=== PATIENT | female | born 1945 | race Caucasian/White ===

== ENCOUNTER 2018-03-15 07:24 | Inpatient (IN) | payer MEDICARE ==
[~2018-03-15] VITALS: Ht 170.2 cm; Wt 67.0 kg
[2018-03-15] MEDS ORDERED: PLEASE ENTER HEIGHT AND WEIGHT MC SCH (08:00)
[2018-03-15] MEDS ORDERED: PLEASE ENTER ALLERGIES MC SCH (08:00)
[2018-03-15] MEDS ORDERED: LIDOCAINE-MPF 1%, 5ML ONE ×2 (08:10→14:07)
[2018-03-15 08:11] VITALS: BP 154/77
[2018-03-15] MEDS ORDERED: METO25TA35 PO (08:20)
[2018-03-15] MEDS ORDERED: CHLO25TA PO (08:20)
[2018-03-15] MEDS ORDERED: DULO30CA2 PO (08:20)
[2018-03-15] MEDS ORDERED: ESTR42.58 VG (08:20)
[2018-03-15] MEDS ORDERED: AMLO-150 PO (08:20)
[2018-03-15] MEDS ORDERED: CA C1TAB42 PO (08:20)
[2018-03-15] MEDS ORDERED: TRAZ50TA66 PO (08:20)
[2018-03-15] MEDS ORDERED: POTASSIUM GLUCONATE PO (08:20)
[2018-03-15] MEDS ORDERED: OMEP-110 PO (08:20)
[2018-03-15] MEDS ORDERED: CHOL500045 PO (08:20)
[2018-03-15] MEDS ORDERED: MIDAZOLAM 1 MG/ML, 5ML ONE (08:25)
[2018-03-15] MEDS ORDERED: FENTANYL PF 100 MCG/2ML ONE ×2 (08:25→15:23)
[2018-03-15] MEDS ORDERED: FLUMAZENIL 0.1 MG/1 ML, 5ML ONE (08:27)
[2018-03-15] MEDS ORDERED: NALOXONE 1 MG/ML, 2ML ONE (08:28)
[2018-03-15] MEDS: SODIUM CHLORIDE 0.9% 1,000 ML IV SCH ×2 (08:39→18:44)
[2018-03-15 08:51] LABS: PROTHROMBIN TIME 10.6 Seconds (9.6-11.5)
[2018-03-15] MEDS ORDERED: KETOROLAC 30 MG/1 ML ONE (11:21)
[2018-03-15] MEDS: KETOROLAC 30 MG/1 ML IVPush ONE ×2 (11:28→11:29)
[2018-03-15] MEDS ORDERED: ATROPINE SYRINGE 0.1 MG/ML, 10ML ONE (12:00)
[2018-03-15] MEDS ORDERED: PROMETHAZINE 12.5 MG SUPP PR ONE (12:30)
[2018-03-15] MEDS ORDERED: MEPERIDINE/PF 25MG/0.5ML IM ONE (12:30)
[2018-03-15] MEDS ORDERED: MEPERIDINE/PF 25MG/0.5ML ONE (12:32)
[2018-03-15] MEDS ORDERED: VISIPAQUE 320MG/ML, 50ML BOTTLE ONE (14:00)
[2018-03-15] MEDS ORDERED: VISIPAQUE 320 MG/ML, 150ML BOTTLE ONE (14:00)
[2018-03-15] MEDS ORDERED: OMNIPAQUE 350 MG/ML, 100ML BOTTLE ONE (14:41)
[2018-03-15 14:43] LABS: BASOPHILS # (AUTO) 0.01 x10^3/uL (0-0.1); BASOPHILS % (AUTO) 0 % (0-1); EOSINOPHILS # (AUTO) 0.02 x10^3/uL (0-0.4); EOSINOPHILS % (AUTO) 0 % (1-7); LYMPHOCYTES # (AUTO) 0.46 x10^3/uL (1-3.4); LYMPHOCYTES % (AUTO) 5 % (22-44); MD NO; MEAN CORPUSCULAR HEMOGLOBIN 33.6 pg (27.0-34.8); MEAN CORPUSCULAR HGB CONC 34.4 g/dL (32.4-35.8); MEAN CORPUSCULAR VOLUME 97.6 fL (80-100); MEAN PLATELET VOLUME 7.6 fL (7.4-10.4); MONOCYTES % (AUTO) 7 % (2-9); NEUTROPHILS # (AUTO) 7.83 x10^3/uL (1.8-6.8); NEUTROPHILS % (AUTO) 88 % (42-75); PLATELET COUNT 257 x10^3/uL (130-400); RED BLOOD COUNT 3.79 x10^6/uL (3.82-5.3); RED CELL DISTRIBUTION WIDTH 12.2 % (9.6-15.2)
[2018-03-15 14:55] LABS: ALANINE AMINOTRANSFERASE 94 U/L (12-78); ALBUMIN 2.8 g/dL (3.4-5.0); ANION GAP 6 mmol/L (5-15); CALCIUM 7.9 mg/dL (8.5-10.1); CHLORIDE 109 mmol/L (98-107); CREATININE 1.19 mg/dL (0.55-1.02)
[2018-03-15 14:57] LABS: ALKALINE PHOSPHATASE 54 U/L (45-117); BILIRUBIN,TOTAL 0.5 mg/dL (0.2-1.0)
[2018-03-15] MEDS ORDERED: ONDANSETRON 2MG/ML, 2ML ONE (15:28)
[2018-03-15] MEDS ORDERED: SODIUM CHLORIDE 0.9% 1,000 ML IV SCH (15:28)
[2018-03-15] MEDS ORDERED: POLYETHYLENE GLYCOL 17 GM PACKET PO PRN (15:30)
[2018-03-15] MEDS ORDERED: BISACODYL 10 MG SUPP PR PRN (15:30)
[2018-03-15] MEDS ORDERED: ONDANSETRON 2MG/ML, 2ML IVPush PRN (15:30)
[2018-03-15] MEDS ORDERED: morphine SULFATE 10 MG/ML, 1ML IVPush PRN (15:30)
[2018-03-15] MEDS: OXYcodone IR 5MG TABLET PO PRN ×2 (17:20→22:12)
[2018-03-15] MEDS ORDERED: SODIUM CHLORIDE 0.9%, 500ML IVBOLUS ONE (20:30)
[2018-03-16 04:00] VITALS: BP 136/70
[2018-03-16] MEDS: OXYcodone IR 5MG TABLET PO PRN ×3 (04:21→18:26)
[2018-03-16 04:56] LABS: BASOPHILS # (AUTO) 0.01 x10^3/uL (0-0.1); BASOPHILS % (AUTO) 0 % (0-1); EOSINOPHILS # (AUTO) 0.14 x10^3/uL (0-0.4); EOSINOPHILS % (AUTO) 1 % (1-7); LYMPHOCYTES # (AUTO) 0.41 x10^3/uL (1-3.4); LYMPHOCYTES % (AUTO) 4 % (22-44); MD NO; MEAN CORPUSCULAR HEMOGLOBIN 34.6 pg (27.0-34.8); MEAN CORPUSCULAR HGB CONC 35.5 g/dL (32.4-35.8); MEAN CORPUSCULAR VOLUME 97.4 fL (80-100); MEAN PLATELET VOLUME 7.7 fL (7.4-10.4); MONOCYTES # (AUTO) 0.59 x10^3/uL (0.2-0.8); MONOCYTES % (AUTO) 6 % (2-9); NEUTROPHILS # (AUTO) 9.08 x10^3/uL (1.8-6.8); NEUTROPHILS % (AUTO) 89 % (42-75); PLATELET COUNT 253 x10^3/uL (130-400); RED BLOOD COUNT 3.52 x10^6/uL (3.82-5.3); RED CELL DISTRIBUTION WIDTH 12.1 % (9.6-15.2)
[2018-03-16] MEDS: SODIUM CHLORIDE 0.9% 1,000 ML IV SCH ×2 (05:02→23:40)
[2018-03-16 05:07] LABS: ALBUMIN 2.9 g/dL (3.4-5.0); ANION GAP 6 mmol/L (5-15); CALCIUM 7.9 mg/dL (8.5-10.1); CHLORIDE 110 mmol/L (98-107)
[2018-03-16 05:12] LABS: ALANINE AMINOTRANSFERASE 364 U/L (12-78); ALKALINE PHOSPHATASE 59 U/L (45-117); BILIRUBIN,TOTAL 0.5 mg/dL (0.2-1.0); CREATININE 0.97 mg/dL (0.55-1.02)
[2018-03-16] MEDS: SENNA/DOCUSATE TABLET PO SCH ×2 (08:51→11:39)
[2018-03-16] MEDS ORDERED: AMLODIPINE 5 MG TABLET PO SCH (12:30)
[2018-03-16] MEDS ORDERED: OMEPRAZOLE 20 MG CAPSULE.DR PO SCH (12:30)
[2018-03-16] MEDS: ESTRADIOL VG SCH (12:30)
[2018-03-16] MEDS: CHOLECALCIFEROL 5,000u TAB PO SCH (13:16)
[2018-03-16] MEDS: CALCIUM/VITAMIN D3 250-125 TABLET PO SCH (13:16)
[2018-03-16] MEDS: DULOXETINE 30 MG CAPSULE.DR PO SCH (13:16)
[2018-03-16] MEDS: ONDANSETRON ODT 4 MG PO PRN ×2 (15:06→21:03)
[2018-03-16] MEDS ORDERED: SODIUM CHLORIDE 0.9% 1,000 ML IV SCH (15:28)
[2018-03-16 20:16] VITALS: BP 148/70
[2018-03-16] MEDS ORDERED: METOPROLOL TARTRATE 25 MG TABLET PO SCH (21:00)
[2018-03-16] MEDS: TRAZODONE 50MG TABLET PO PRN (21:03)
[2018-03-16 22:04] LABS: MEAN CORPUSCULAR HEMOGLOBIN 34.5 pg (27.0-34.8); MEAN CORPUSCULAR HGB CONC 35.5 g/dL (32.4-35.8); MEAN CORPUSCULAR VOLUME 97.1 fL (80-100); MEAN PLATELET VOLUME 7.1 fL (7.4-10.4); PLATELET COUNT 180 x10^3/uL (130-400); RED BLOOD COUNT 3.45 x10^6/uL (3.82-5.3); RED CELL DISTRIBUTION WIDTH 11.9 % (9.6-15.2)
[2018-03-16 22:05] LABS: MD YES
[2018-03-16 22:14] LABS: ALBUMIN 2.8 g/dL (3.4-5.0); ANION GAP 8 mmol/L (5-15); CHLORIDE 104 mmol/L (98-107); CREATININE 1.25 mg/dL (0.55-1.02)
[2018-03-16 22:29] LABS: ALANINE AMINOTRANSFERASE 1696 U/L (12-78); ALKALINE PHOSPHATASE 126 U/L (45-117); BILIRUBIN,TOTAL 1.2 mg/dL (0.2-1.0); TOTAL PROTEIN 5.9 g/dL (6.4-8.2)
[2018-03-16 22:30] LABS: BAND#(MANUAL) 0.85 x10^3/uL; BANDS%(MANUAL) 25 % (0-7); BASOS#(MANUAL) 0.03 x10^3/uL (0-0.1); BASOS% (MANUAL) 1 % (0-1); LYMPH#(MANUAL) 0.37 x10^3/uL (1-3.4); LYMPHS% (MANUAL) 11 % (22-44); METAMYELOCYTES# (MANUAL) 0.07 x10^3/uL (0-0); METAMYELOCYTES% (MANUAL) 2 % (0-1); NRBC % (MANUAL) 2 % (0-1); SEG#(MANUAL) 2.07 x10^3/uL (1.8-6.8); SEGS% (MANUAL) 61 % (42-75)
[2018-03-16] MEDS ORDERED: SODIUM CHLORIDE 0.9% 1,000ML IVBOLUS ONE (22:30)
[2018-03-16] MEDS ORDERED: ASPIRIN 300 MG SUPP PR ONE (22:30)
[2018-03-16 22:31] LABS: ANISOCYTOSIS 1+; POLYCHROMASIA 1+
[2018-03-16 22:32] LABS: <PLATELET ESTIMATE> ADEQUATE; <PLT MORPHOLOGY> NORMAL PLT MORPH
[2018-03-16 22:33] VITALS: BP 122/63
[2018-03-16 22:51] LABS: MICROSCOPIC AUTO
[2018-03-16 23:24] VITALS: BP 121/76
[2018-03-17 00:20] VITALS: BP 105/66
[2018-03-17 01:46] LABS: MEAN CORPUSCULAR HEMOGLOBIN 34.5 pg (27.0-34.8); MEAN CORPUSCULAR HGB CONC 35.6 g/dL (32.4-35.8); MEAN CORPUSCULAR VOLUME 96.9 fL (80-100); MEAN PLATELET VOLUME 7.5 fL (7.4-10.4); PLATELET COUNT 171 x10^3/uL (130-400); RED BLOOD COUNT 3.19 x10^6/uL (3.82-5.3); RED CELL DISTRIBUTION WIDTH 12.3 % (9.6-15.2)
[2018-03-17 01:47] LABS: MD YES
[2018-03-17 01:59] LABS: ANISOCYTOSIS 1+; BAND#(MANUAL) 1.66 x10^3/uL; BANDS%(MANUAL) 24 % (0-7); LYMPH#(MANUAL) 0.14 x10^3/uL (1-3.4); LYMPHS% (MANUAL) 2 % (22-44); MONOS#(MANUAL) 0.14 x10^3/uL (0.3-2.7); MONOS% (MANUAL) 2 % (2-9); NRBC % (MANUAL) 2 % (0-1); SEG#(MANUAL) 4.97 x10^3/uL (1.8-6.8); SEGS% (MANUAL) 72 % (42-75)
[2018-03-17 02:00] LABS: <PLATELET ESTIMATE> ADEQUATE; <PLT MORPHOLOGY> NORMAL PLT MORPH; POLYCHROMASIA 1+
[2018-03-17] MEDS: DEXTROSE 50%, 50ML SYRINGE IVPush PRN ×2 (06:53→16:57)
[2018-03-17] MEDS ORDERED: DEXTROSE 4 GM TAB.CHEW PO PRN (07:00)
[2018-03-17] MEDS ORDERED: GLUCAGON 1 MG IM PRN (07:00)
[2018-03-17 07:11] VITALS: BP 79/44
[2018-03-17 07:31] LABS: ALBUMIN 2.3 g/dL (3.4-5.0); ANION GAP 18 mmol/L (5-15); CALCIUM 7.5 mg/dL (8.5-10.1); CHLORIDE 104 mmol/L (98-107); CREATININE 1.78 mg/dL (0.55-1.02)
[2018-03-17 07:46] LABS: ALANINE AMINOTRANSFERASE 2165 U/L (12-78); ALKALINE PHOSPHATASE 159 U/L (45-117); BILIRUBIN,TOTAL 3.4 mg/dL (0.2-1.0); TOTAL PROTEIN 5.1 g/dL (6.4-8.2)
[2018-03-17] MEDS ORDERED: VASOPRESSIN 100 UNIT in SODIUM CHLORIDE 0.9% 495 ML IV PRN (08:00)
[2018-03-17] MEDS ORDERED: PHARMACOKINETIC MONITORING MC PRN (08:00)
[2018-03-17] MEDS ORDERED: NOREPINEPHRINE 4 MG in SODIUM CHLORIDE 0.9% 246 ML IV PRN ×2 (08:00→10:43)
[2018-03-17] MEDS ORDERED: PHARMACOKINETIC CONSULTATION MC ONE (08:00)
[2018-03-17] MEDS ORDERED: VANCOMYCIN PER PHARMACY MC PRN (08:00)
[2018-03-17 08:09] LABS: TROPONIN I 0.072 ng/mL (0.000-0.045)
[2018-03-17] MEDS ORDERED: NOREPINEPHRINE 1 MG/ML, 4ML ONE (08:10)
[2018-03-17] MEDS ORDERED: FENTANYL PF 100 MCG/2ML ONE (08:17)
[2018-03-17] MEDS ORDERED: OMNIPAQUE 350 MG/ML, 100ML BOTTLE ONE (08:21)
[2018-03-17 09:00] LABS: FIO2 100 %
[2018-03-17] MEDS ORDERED: MIDAZOLAM 1 MG/ML, 2ML ONE (09:05)
[2018-03-17] MEDS ORDERED: FENTANYL PF 250 MCG/5ML ONE (09:06)
[2018-03-17 09:15] LABS: ANION GAP 16 mmol/L (5-15); CALCIUM 6.3 mg/dL (8.5-10.1); CHLORIDE 109 mmol/L (98-107); CREATININE 1.66 mg/dL (0.55-1.02)
[2018-03-17 09:29] LABS: MD YES; MEAN CORPUSCULAR HEMOGLOBIN 34.2 pg (27.0-34.8); MEAN CORPUSCULAR HGB CONC 35.1 g/dL (32.4-35.8); MEAN CORPUSCULAR VOLUME 97.5 fL (80-100); MEAN PLATELET VOLUME 8.2 fL (7.4-10.4); PLATELET COUNT 141 x10^3/uL (130-400); RED BLOOD COUNT 2.72 x10^6/uL (3.82-5.3); RED CELL DISTRIBUTION WIDTH 12.1 % (9.6-15.2)
[2018-03-17] MEDS ORDERED: MAGNESIUM SULFATE 4 GM in SODIUM CHLORIDE 0.9% 100 ML IV ONE (09:30)
[2018-03-17 09:33] LABS: <PLATELET ESTIMATE> ADEQUATE; <PLT MORPHOLOGY> NORMAL PLT MORPH; ANISOCYTOSIS 1+; BAND#(MANUAL) 10.03 x10^3/uL; BANDS%(MANUAL) 48 % (0-7); METAMYELOCYTES# (MANUAL) 1.67 x10^3/uL (0-0); METAMYELOCYTES% (MANUAL) 8 % (0-1); MONOS#(MANUAL) 0.42 x10^3/uL (0.3-2.7); MONOS% (MANUAL) 2 % (2-9); POLYCHROMASIA 1+; SEG#(MANUAL) 8.78 x10^3/uL (1.8-6.8); SEGS% (MANUAL) 42 % (42-75)
[2018-03-17 09:34] LABS: PMNS WITH VACUOLES 2+
[2018-03-17] MEDS ORDERED: CALCIUM CHLORIDE 10%, 10ML SYR ONE (09:44)
[2018-03-17] MEDS ORDERED: THROMBIN 20,000 UNIT VIAL TP ONE (09:51)
[2018-03-17] MEDS ORDERED: PROPOFOL 10 MG/ML, 100ML IV ONE (10:03)
[2018-03-17] MEDS ORDERED: ETOMIDATE 40 MG/20 ML ONE (10:03)
[2018-03-17] MEDS ORDERED: ROCURONIUM 10MG/ML,5ML ONE (10:03)
[2018-03-17] MEDS: ALBUTEROL/IPRATROPIUM 2.5MG/0.5MG, 3 ML INLINE SCH ×4 (11:00→23:08)
[2018-03-17] MEDS ORDERED: PHARMACY MAY ADJ FOR RENAL FX MC SCH (11:00)
[2018-03-17] MEDS ORDERED: SODIUM CHLORIDE 0.9% 1,000 ML IV SCH (11:00)
[2018-03-17] MEDS ORDERED: SODIUM CHLORIDE 0.9% 1,000ML IVBOLUS ONE ×2 (11:00→11:30)
[2018-03-17] MEDS ORDERED: LIDOCAINE-MPF 1%, 2ML ENDO PRN (11:00)
[2018-03-17] MEDS: MEROPENEM 1 GM in SODIUM CHLORIDE 0.9% 100 ML IV SCH ×3 (11:05→23:56)
[2018-03-17] MEDS: SODIUM CHLORIDE FLUSH 10ML SYR IVF SCH ×2 (11:07→20:40)
[2018-03-17] MEDS: SODIUM CHLORIDE 0.9% 1,000ML IVBOLUS ONE ×2 (11:07→11:25)
[2018-03-17] MEDS: ESTRADIOL VG SCH (11:08)
[2018-03-17] MEDS: CHOLECALCIFEROL 5,000u TAB PO SCH (11:08)
[2018-03-17] MEDS: DULOXETINE 30 MG CAPSULE.DR PO SCH (11:08)
[2018-03-17] MEDS: SODIUM CHLORIDE 0.9% 1,000 ML IV SCH (11:08)
[2018-03-17] MEDS: CALCIUM/VITAMIN D3 250-125 TABLET PO SCH (11:08)
[2018-03-17] MEDS: VANCOMYCIN 1,200 MG in SODIUM CHLORIDE 0.9% 250 ML IV SCH (11:12)
[2018-03-17] MEDS: NOREPINEPHRINE 4 MG in SODIUM CHLORIDE 0.9% 246 ML IV PRN ×2 (11:24→19:19)
[2018-03-17 12:06] LABS: INTERNATIONAL NORMALIZED RATIO 1.56 (0.93-1.1); PROTHROMBIN TIME 16.3 Seconds (9.6-11.5)
[2018-03-17] MEDS ORDERED: CALCIUM GLUCONATE 9.2 MEQ in SODIUM CHLORIDE 0.9% 100 ML IV ONE (14:00)
[2018-03-17] MEDS: FENTANYL PF 100 MCG/2ML IVPush PRN ×3 (16:42→23:27)
[2018-03-17] MEDS: D5%-0.45% NACL 1,000 ML IV SCH (17:43)
[2018-03-17 18:08] LABS: ALBUMIN 2.1 g/dL (3.4-5.0); ANION GAP 16 mmol/L (5-15); CALCIUM 7.9 mg/dL (8.5-10.1); CHLORIDE 113 mmol/L (98-107); CREATININE 1.83 mg/dL (0.55-1.02)
[2018-03-17 18:13] LABS: ALKALINE PHOSPHATASE 131 U/L (45-117); BILIRUBIN,TOTAL 4.2 mg/dL (0.2-1.0); TOTAL PROTEIN 4.5 g/dL (6.4-8.2)
[2018-03-17 18:17] LABS: ALANINE AMINOTRANSFERASE 3146 U/L (12-78)
[2018-03-17] MEDS ORDERED: POTASSIUM CHLORIDE 40 MEQ in SODIUM CHLORIDE 0.9% 100 ML IV ONE (18:30)
[2018-03-17] MEDS: PROPOFOL 100 ML IV PRN (22:56)
[2018-03-18] MEDS: NOREPINEPHRINE 4 MG in SODIUM CHLORIDE 0.9% 246 ML IV PRN ×2 (01:17→08:24)
[2018-03-18] MEDS: ALBUTEROL/IPRATROPIUM 2.5MG/0.5MG, 3 ML INLINE SCH ×6 (03:58→22:33)
[2018-03-18] MEDS: D5%-0.45% NACL 1,000 ML IV SCH (04:22)
[2018-03-18 05:30] LABS: ANION GAP 11 mmol/L (5-15); CALCIUM 7.4 mg/dL (8.5-10.1); CHLORIDE 113 mmol/L (98-107); CREATININE 2.41 mg/dL (0.55-1.02)
[2018-03-18] MEDS ORDERED: PANTOPRAZOLE 40 MG IV IVPush SCH (06:00)
[2018-03-18] MEDS: FENTANYL PF 100 MCG/2ML IVPush PRN ×2 (06:02→08:37)
[2018-03-18 06:03] LABS: HEMOGRAM NOTE RECHECKED; MEAN CORPUSCULAR HGB CONC 34.2 g/dL (32.4-35.8); MEAN CORPUSCULAR VOLUME 93.6 fL (80-100); MEAN PLATELET VOLUME 9.7 fL (7.4-10.4); PLATELET COUNT 112 x10^3/uL (130-400); RED BLOOD COUNT 3.85 x10^6/uL (3.82-5.3); RED CELL DISTRIBUTION WIDTH 16.2 % (9.6-15.2)
[2018-03-18 06:52] LABS: MD YES
[2018-03-18 06:53] LABS: METAMYELOCYTES# (MANUAL) 1.39 x10^3/uL (0-0); METAMYELOCYTES% (MANUAL) 6 % (0-1); MONOS#(MANUAL) 0.46 x10^3/uL (0.3-2.7); MONOS% (MANUAL) 2 % (2-9); NRBC % (MANUAL) 1 % (0-1)
[2018-03-18 06:54] LABS: BAND#(MANUAL) 9.05 x10^3/uL; BANDS%(MANUAL) 39 % (0-7); LYMPHS% (MANUAL) 3 % (22-44); SEGS% (MANUAL) 50 % (42-75)
[2018-03-18 06:55] LABS: <PLATELET ESTIMATE> DECREASED; <PLT MORPHOLOGY> NORMAL PLT MORPH; ANISOCYTOSIS 1+; PMNS WITH VACUOLES 2+; POLYCHROMASIA 1+
[2018-03-18] MEDS: MEROPENEM 1 GM in SODIUM CHLORIDE 0.9% 100 ML IV SCH ×2 (08:08→16:49)
[2018-03-18] MEDS: CALCIUM/VITAMIN D3 250-125 TABLET PO SCH (08:08)
[2018-03-18] MEDS: SENNA/DOCUSATE TABLET PO SCH (08:08)
[2018-03-18] MEDS: DULOXETINE 30 MG CAPSULE.DR PO SCH (08:08)
[2018-03-18] MEDS: CHOLECALCIFEROL 5,000u TAB PO SCH (08:09)
[2018-03-18] MEDS: ESTRADIOL VG SCH (08:09)
[2018-03-18] MEDS: PANTOPRAZOLE 40 MG IV IV SCH (08:24)
[2018-03-18] MEDS: SODIUM CHLORIDE FLUSH 10ML SYR IVF SCH ×2 (08:24→21:37)
[2018-03-18] MEDS: PROPOFOL 100 ML IV PRN (09:47)
[2018-03-18 10:29] LABS: ALKALINE PHOSPHATASE 139 U/L (45-117); BILIRUBIN,TOTAL 2.9 mg/dL (0.2-1.0); TOTAL PROTEIN 4.8 g/dL (6.4-8.2); TROPONIN I 0.273 ng/mL (0.000-0.045)
[2018-03-18 10:43] LABS: ALANINE AMINOTRANSFERASE 3110 U/L (12-78)
[2018-03-18] MEDS ORDERED: LACTATED RINGERS 1,000 ML IVBOLUS ONE ×2 (11:30→15:00)
[2018-03-18] MEDS ORDERED: LIDOCAINE-MPF 1%, 5ML ONE (13:01)
[2018-03-18] MEDS: ALBUMIN HUMAN 25% 100 ML IV SCH ×3 (13:22→23:42)
[2018-03-18 13:24] LABS: ABSOLUTE RETICS # 0.063 x10^6/uL (0.5-2.5); RED BLOOD COUNT 3.61 x10^6/uL (3.82-5.3); RETICULOCYTE COUNT % 1.75 % (0.5-1.5)
[2018-03-18 13:30] LABS: ALBUMIN 1.8 g/dL (3.4-5.0); ANION GAP 11 mmol/L (5-15); BILIRUBIN, DIRECT 2.7 mg/dL (0.1-0.2); CALCIUM 7.4 mg/dL (8.5-10.1); CHLORIDE 113 mmol/L (98-107); CREATININE 2.44 mg/dL (0.55-1.02)
[2018-03-18 13:34] LABS: CALCIUM 7.4 mg/dL (8.5-10.1)
[2018-03-18 13:46] LABS: ALANINE AMINOTRANSFERASE 2780 U/L (12-78); ALKALINE PHOSPHATASE 155 U/L (45-117); BILIRUBIN,INDIRECT 0.7 mg/dL (0.0-2.0); BILIRUBIN,TOTAL 3.4 mg/dL (0.2-1.0); CREATINE KINASE, TOTAL 282 U/L (26-192); TOTAL PROTEIN 4.1 g/dL (6.4-8.2)
[2018-03-18 15:25] LABS: CHLORIDE,URINE RANDOM 12 mmol/L; MICROSCOPIC INDICATED; POTASSIUM,URINE RANDOM 54 mmol/L; SODIUM,URINE RANDOM 8 mmol/L
[2018-03-18] MEDS ORDERED: D5%-0.45% NACL 1,000 ML IV SCH (17:30)
[2018-03-18] MEDS: VANCOMYCIN 1,200 MG in SODIUM CHLORIDE 0.9% 250 ML IV SCH (21:37)
[2018-03-18] MEDS: DEXTROSE 50%, 50ML SYRINGE IVPush PRN ×2 (21:39→22:08)
[2018-03-18] MEDS ORDERED: DEXTROSE 10% 1,000 ML IV SCH (22:30)
[2018-03-19] MEDS: MEROPENEM 1 GM in SODIUM CHLORIDE 0.9% 100 ML IV SCH ×2 (01:06→07:56)
[2018-03-19] MEDS: ALBUTEROL/IPRATROPIUM 2.5MG/0.5MG, 3 ML INLINE SCH ×6 (02:33→22:53)
[2018-03-19 04:39] LABS: ALBUMIN 2.9 g/dL (3.4-5.0); CALCIUM 7.1 mg/dL (8.5-10.1); CHLORIDE 105 mmol/L (98-107)
[2018-03-19 04:49] LABS: MEAN CORPUSCULAR HEMOGLOBIN 32.3 pg (27.0-34.8); MEAN CORPUSCULAR HGB CONC 34.4 g/dL (32.4-35.8); MEAN PLATELET VOLUME 9.1 fL (7.4-10.4); PLATELET COUNT 63 x10^3/uL (130-400); RED BLOOD COUNT 2.85 x10^6/uL (3.82-5.3); RED CELL DISTRIBUTION WIDTH 16.6 % (9.6-15.2)
[2018-03-19 04:50] LABS: ALANINE AMINOTRANSFERASE 1605 U/L (12-78); ALKALINE PHOSPHATASE 101 U/L (45-117); ANION GAP 11 mmol/L (5-15); BILIRUBIN,TOTAL 3.6 mg/dL (0.2-1.0); CREATININE 1.56 mg/dL (0.55-1.02); MD YES; TOTAL PROTEIN 4.5 g/dL (6.4-8.2)
[2018-03-19 04:52] LABS: ANISOCYTOSIS 1+; BAND#(MANUAL) 2.69 x10^3/uL; BANDS%(MANUAL) 16 % (0-7); LYMPH#(MANUAL) 0.34 x10^3/uL (1-3.4); LYMPHS% (MANUAL) 2 % (22-44); MONOS#(MANUAL) 1.01 x10^3/uL (0.3-2.7); MONOS% (MANUAL) 6 % (2-9); POLYCHROMASIA 1+; SEG#(MANUAL) 12.77 x10^3/uL (1.8-6.8); SEGS% (MANUAL) 76 % (42-75)
[2018-03-19 04:53] LABS: <PLATELET ESTIMATE> DECREASED; <PLT MORPHOLOGY> NORMAL PLT MORPH; TOXIC GRAN 1+
[2018-03-19] MEDS: ALBUMIN HUMAN 25% 100 ML IV SCH (06:20)
[2018-03-19] MEDS: PROPOFOL 100 ML IV PRN ×2 (06:20→19:56)
[2018-03-19] MEDS ORDERED: POTASSIUM PHOSPHATE 44 MEQ in SODIUM CHLORIDE 0.9% 500 ML IV ONE (07:00)
[2018-03-19] MEDS ORDERED: POTASSIUM CHLORIDE 40 MEQ in SODIUM CHLORIDE 0.9% 100 ML IV ONE (07:30)
[2018-03-19] MEDS: PANTOPRAZOLE 40 MG IV IV SCH (07:56)
[2018-03-19] MEDS: ESTRADIOL VG SCH (07:56)
[2018-03-19] MEDS: SODIUM CHLORIDE FLUSH 10ML SYR IVF SCH ×2 (07:56→19:53)
[2018-03-19] MEDS: CHOLECALCIFEROL 5,000u TAB PO SCH (07:56)
[2018-03-19] MEDS: DULOXETINE 30 MG CAPSULE.DR PO SCH (07:56)
[2018-03-19] MEDS: CALCIUM/VITAMIN D3 250-125 TABLET PO SCH (07:56)
[2018-03-19] MEDS: SENNA/DOCUSATE TABLET PO SCH (07:56)
[2018-03-19] MEDS ORDERED: ERTAPENEM 0.5 GM in SODIUM CHLORIDE 0.9% 50 ML IV SCH (09:30)
[2018-03-19] MEDS ORDERED: DARBEPOETIN 100 MCG/ML SQ SCH (10:30)
[2018-03-19] MEDS: DEXTROSE 10% 1,000 ML IV SCH (15:00)
[2018-03-19] MEDS: NOREPINEPHRINE 4 MG in SODIUM CHLORIDE 0.9% 246 ML IV PRN (19:55)
[2018-03-19] MEDS ORDERED: ROCURONIUM 10MG/ML,5ML ONE (21:00)
[2018-03-19] MEDS ORDERED: PROPOFOL 10 MG/ML, 20ML ONE (21:00)
[2018-03-19] MEDS ORDERED: FENTANYL PF 100 MCG/2ML ONE (21:13)
[2018-03-20] MEDS: ALBUTEROL/IPRATROPIUM 2.5MG/0.5MG, 3 ML INLINE SCH ×6 (03:00→23:18)
[2018-03-20 04:29] LABS: ALANINE AMINOTRANSFERASE 890 U/L (12-78); ALBUMIN 2.1 g/dL (3.4-5.0); ANION GAP 7 mmol/L (5-15); CALCIUM 6.7 mg/dL (8.5-10.1); CHLORIDE 106 mmol/L (98-107)
[2018-03-20 04:32] LABS: ALKALINE PHOSPHATASE 96 U/L (45-117); BILIRUBIN,TOTAL 3.8 mg/dL (0.2-1.0); TOTAL PROTEIN 3.7 g/dL (6.4-8.2); TRIGLYCERIDES 124 mg/dL (50-200)
[2018-03-20 04:33] LABS: MD YES
[2018-03-20 04:34] LABS: MEAN CORPUSCULAR HEMOGLOBIN 32.5 pg (27.0-34.8); MEAN CORPUSCULAR HGB CONC 34.9 g/dL (32.4-35.8); MEAN CORPUSCULAR VOLUME 93.3 fL (80-100); MEAN PLATELET VOLUME 9.5 fL (7.4-10.4); PLATELET COUNT 57 x10^3/uL (130-400); RED BLOOD COUNT 3.15 x10^6/uL (3.82-5.3); RED CELL DISTRIBUTION WIDTH 16.2 % (9.6-15.2)
[2018-03-20 04:36] LABS: BAND#(MANUAL) 1.99 x10^3/uL; BANDS%(MANUAL) 11 % (0-7); LYMPH#(MANUAL) 0.36 x10^3/uL (1-3.4); LYMPHS% (MANUAL) 2 % (22-44); MONOS#(MANUAL) 1.09 x10^3/uL (0.3-2.7); MONOS% (MANUAL) 6 % (2-9); NRBC % (MANUAL) 1 % (0-1); SEG#(MANUAL) 14.66 x10^3/uL (1.8-6.8); SEGS% (MANUAL) 81 % (42-75)
[2018-03-20 04:37] LABS: <PLATELET ESTIMATE> DECREASED; <PLT MORPHOLOGY> NORMAL PLT MORPH; ANISOCYTOSIS 1+; POLYCHROMASIA 1+; TOXIC GRAN 1+
[2018-03-20 04:38] LABS: PMNS WITH VACUOLES 1+
[2018-03-20] MEDS ORDERED: SODIUM PHOSPHATE 10 MMOL in SODIUM CHLORIDE 0.9% 500 ML IV ONE (05:30)
[2018-03-20] MEDS ORDERED: MAGNESIUM SULFATE PMX 4GM/100M 100 ML IVPB ONE (06:00)
[2018-03-20] MEDS: DEXTROSE 50%, 50ML SYRINGE IVPush PRN (08:50)
[2018-03-20] MEDS: ESTRADIOL VG SCH (09:00)
[2018-03-20] MEDS: DULOXETINE 30 MG CAPSULE.DR PO SCH (09:00)
[2018-03-20] MEDS: PANTOPRAZOLE 40 MG IV IV SCH (09:23)
[2018-03-20] MEDS: SODIUM CHLORIDE FLUSH 10ML SYR IVF SCH ×2 (09:23→20:16)
[2018-03-20] MEDS: DEXTROSE 10% 1,000 ML IV SCH (11:00)
[2018-03-20] MEDS: ERTAPENEM 1 GM in SODIUM CHLORIDE 0.9% 50 ML IV SCH (11:38)
[2018-03-20] MEDS: CALCIUM CARBONATE 500 MG/5 ML JT SCH (11:39)
[2018-03-20] MEDS: SENNA 176 MG/5 ML ORAL SOL JT SCH (11:39)
[2018-03-20] MEDS: CHOLECALCIFEROL 400 UNITS/ML ORAL SOL JT SCH (11:39)
[2018-03-20] MEDS: NOREPINEPHRINE 4 MG in SODIUM CHLORIDE 0.9% 246 ML IV PRN (18:24)
[2018-03-20] MEDS: FENTANYL PF 100 MCG/2ML IVPush PRN (20:16)
[2018-03-21] MEDS: FENTANYL PF 100 MCG/2ML IVPush PRN ×4 (00:15→09:15)
[2018-03-21] MEDS: ALBUTEROL/IPRATROPIUM 2.5MG/0.5MG, 3 ML INLINE SCH ×6 (02:07→22:38)
[2018-03-21] MEDS: NOREPINEPHRINE 4 MG in SODIUM CHLORIDE 0.9% 246 ML IV PRN ×2 (03:19→15:04)
[2018-03-21 04:38] LABS: MEAN CORPUSCULAR HEMOGLOBIN 32.7 pg (27.0-34.8); MEAN CORPUSCULAR HGB CONC 34.5 g/dL (32.4-35.8); MEAN CORPUSCULAR VOLUME 94.7 fL (80-100); MEAN PLATELET VOLUME 10.7 fL (7.4-10.4); PLATELET COUNT 58 x10^3/uL (130-400); RED CELL DISTRIBUTION WIDTH 16.6 % (9.6-15.2)
[2018-03-21 04:59] LABS: ALANINE AMINOTRANSFERASE 540 U/L (12-78); ALBUMIN 1.9 g/dL (3.4-5.0); ANION GAP 6 mmol/L (5-15); CALCIUM 6.8 mg/dL (8.5-10.1); CHLORIDE 104 mmol/L (98-107); CREATININE 1.43 mg/dL (0.55-1.02)
[2018-03-21 05:01] LABS: ALKALINE PHOSPHATASE 123 U/L (45-117); BILIRUBIN,TOTAL 2.8 mg/dL (0.2-1.0); TOTAL PROTEIN 3.9 g/dL (6.4-8.2)
[2018-03-21 05:37] LABS: MD YES
[2018-03-21 05:43] LABS: ANISOCYTOSIS 1+; BAND#(MANUAL) 2.28 x10^3/uL; BANDS%(MANUAL) 10 % (0-7); LYMPHS% (MANUAL) 7 % (22-44); MONOS#(MANUAL) 0.68 x10^3/uL (0.3-2.7); MONOS% (MANUAL) 3 % (2-9); POLYCHROMASIA 1+; SEG#(MANUAL) 18.24 x10^3/uL (1.8-6.8); SEGS% (MANUAL) 80 % (42-75); TOXIC GRAN 1+
[2018-03-21 05:44] LABS: <PLATELET ESTIMATE> DECREASED; <PLT MORPHOLOGY> NORMAL PLT MORPH
[2018-03-21] MEDS ORDERED: POTASSIUM PHOSPHATE 44 MEQ in SODIUM CHLORIDE 0.9% 500 ML IV ONE (08:00)
[2018-03-21] MEDS: ESTRADIOL VG SCH (09:00)
[2018-03-21] MEDS: DULOXETINE 30 MG CAPSULE.DR PO SCH (09:00)
[2018-03-21] MEDS: ALBUMIN HUMAN 25% 100 ML IV SCH ×2 (09:16→17:41)
[2018-03-21] MEDS: PANTOPRAZOLE 40 MG IV IV SCH (09:16)
[2018-03-21] MEDS: SENNA 176 MG/5 ML ORAL SOL JT SCH (09:17)
[2018-03-21] MEDS: ERTAPENEM 1 GM in SODIUM CHLORIDE 0.9% 50 ML IV SCH (09:42)
[2018-03-21] MEDS: SODIUM CHLORIDE FLUSH 10ML SYR IVF SCH ×2 (10:00→23:21)
[2018-03-21] MEDS: CHOLECALCIFEROL 400 UNITS/ML ORAL SOL JT SCH (10:08)
[2018-03-21] MEDS: CALCIUM CARBONATE 500 MG/5 ML JT SCH (10:08)
[2018-03-21] MEDS: DEXTROSE 10% 1,000 ML IV SCH (20:50)
[2018-03-22] MEDS: ALBUMIN HUMAN 25% 100 ML IV SCH ×3 (00:43→17:18)
[2018-03-22] MEDS: ALBUTEROL/IPRATROPIUM 2.5MG/0.5MG, 3 ML INLINE SCH ×6 (02:16→22:21)
[2018-03-22 04:32] LABS: ALBUMIN 2.6 g/dL (3.4-5.0); ANION GAP 4 mmol/L (5-15); CALCIUM 6.9 mg/dL (8.5-10.1); CHLORIDE 110 mmol/L (98-107)
[2018-03-22 04:36] LABS: CREATININE 1.22 mg/dL (0.55-1.02)
[2018-03-22 04:37] LABS: ALANINE AMINOTRANSFERASE 260 U/L (12-78); ALKALINE PHOSPHATASE 96 U/L (45-117); BILIRUBIN,TOTAL 2.8 mg/dL (0.2-1.0); TOTAL PROTEIN 4.4 g/dL (6.4-8.2)
[2018-03-22 04:40] LABS: MEAN CORPUSCULAR HEMOGLOBIN 32.4 pg (27.0-34.8); MEAN CORPUSCULAR HGB CONC 34.2 g/dL (32.4-35.8); MEAN CORPUSCULAR VOLUME 94.9 fL (80-100); MEAN PLATELET VOLUME 10.7 fL (7.4-10.4); PLATELET COUNT 59 x10^3/uL (130-400); RED BLOOD COUNT 2.66 x10^6/uL (3.82-5.3); RED CELL DISTRIBUTION WIDTH 16.4 % (9.6-15.2)
[2018-03-22 05:16] LABS: MD YES
[2018-03-22 05:18] LABS: ANISOCYTOSIS 1+; BANDS%(MANUAL) 2 % (0-7); EOS#(MANUAL) 0.15 x10^3/uL (0.0-0.4); EOS% (MANUAL) 1 % (1-7); LYMPH#(MANUAL) 1.06 x10^3/uL (1-3.4); LYMPHS% (MANUAL) 7 % (22-44); MONOS#(MANUAL) 0.76 x10^3/uL (0.3-2.7); MONOS% (MANUAL) 5 % (2-9); POLYCHROMASIA 1+; SEG#(MANUAL) 12.92 x10^3/uL (1.8-6.8); SEGS% (MANUAL) 85 % (42-75)
[2018-03-22 05:19] LABS: <PLATELET ESTIMATE> DECREASED; <PLT MORPHOLOGY> NORMAL PLT MORPH; TOXIC GRAN 1+
[2018-03-22] MEDS: NOREPINEPHRINE 4 MG in SODIUM CHLORIDE 0.9% 246 ML IV PRN (06:05)
[2018-03-22] MEDS ORDERED: POTASSIUM CHLORIDE 10% 40 MEQ/30 ML UDC PO ONE (07:30)
[2018-03-22] MEDS: SODIUM CHLORIDE FLUSH 10ML SYR IVF SCH ×2 (09:19→21:37)
[2018-03-22] MEDS: PANTOPRAZOLE 40 MG IV IV SCH (09:19)
[2018-03-22] MEDS: DULOXETINE 30 MG CAPSULE.DR PO SCH (09:20)
[2018-03-22] MEDS: CHOLECALCIFEROL 400 UNITS/ML ORAL SOL JT SCH (09:20)
[2018-03-22] MEDS: SENNA 176 MG/5 ML ORAL SOL JT SCH (09:21)
[2018-03-22] MEDS: ERTAPENEM 1 GM in SODIUM CHLORIDE 0.9% 50 ML IV SCH (09:21)
[2018-03-22] MEDS: CALCIUM CARBONATE 500 MG/5 ML JT SCH (09:21)
[2018-03-22] MEDS: FENTANYL PF 2,500 MCG in SODIUM CHLORIDE 0.9% 200 ML IV PRN ×2 (10:02→10:32)
[2018-03-22] MEDS: DEXTROSE 10% 1,000 ML IV SCH (17:19)
[2018-03-23] MEDS: ALBUMIN HUMAN 25% 100 ML IV SCH ×3 (00:41→20:21)
[2018-03-23] MEDS: ALBUTEROL/IPRATROPIUM 2.5MG/0.5MG, 3 ML INLINE SCH ×6 (02:35→22:26)
[2018-03-23 03:03] LABS: ALBUMIN 3.2 g/dL (3.4-5.0); ANION GAP 6 mmol/L (5-15); CALCIUM 7.4 mg/dL (8.5-10.1); CHLORIDE 110 mmol/L (98-107)
[2018-03-23 03:08] LABS: ALANINE AMINOTRANSFERASE 153 U/L (12-78); ALKALINE PHOSPHATASE 96 U/L (45-117); BILIRUBIN,TOTAL 2.4 mg/dL (0.2-1.0); CREATININE 1.41 mg/dL (0.55-1.02); TOTAL PROTEIN 4.9 g/dL (6.4-8.2); TRIGLYCERIDES 97 mg/dL (50-200)
[2018-03-23 03:18] LABS: MEAN CORPUSCULAR HEMOGLOBIN 32.1 pg (27.0-34.8); MEAN CORPUSCULAR HGB CONC 33.7 g/dL (32.4-35.8); MEAN CORPUSCULAR VOLUME 95.1 fL (80-100); MEAN PLATELET VOLUME 10.5 fL (7.4-10.4); PLATELET COUNT 71 x10^3/uL (130-400); RED BLOOD COUNT 2.61 x10^6/uL (3.82-5.3); RED CELL DISTRIBUTION WIDTH 16.7 % (9.6-15.2)
[2018-03-23 03:53] VITALS: BP 114/52
[2018-03-23 03:54] LABS: MD YES
[2018-03-23 03:58] LABS: ANISOCYTOSIS 1+; BAND#(MANUAL) 0.27 x10^3/uL; BANDS%(MANUAL) 2 % (0-7); LYMPH#(MANUAL) 0.93 x10^3/uL (1-3.4); LYMPHS% (MANUAL) 7 % (22-44); METAMYELOCYTES# (MANUAL) 0.13 x10^3/uL (0-0); METAMYELOCYTES% (MANUAL) 1 % (0-1); MONOS#(MANUAL) 1.06 x10^3/uL (0.3-2.7); MONOS% (MANUAL) 8 % (2-9); POLYCHROMASIA 1+; REACTIVE LYMPHS # (MANUAL) 0.27 x10^3/uL (0-0); REACTIVE LYMPHS % (MANUAL) 2 % (0-0); SEG#(MANUAL) 10.64 x10^3/uL (1.8-6.8); SEGS% (MANUAL) 80 % (42-75)
[2018-03-23 03:59] LABS: <PLATELET ESTIMATE> DECREASED; TOXIC GRAN 1+
[2018-03-23 04:00] LABS: LARGE PLATELETS 1+
[2018-03-23] MEDS: PANTOPRAZOLE 40 MG IV IV SCH (08:52)
[2018-03-23] MEDS: DULOXETINE 30 MG CAPSULE.DR PO SCH (08:52)
[2018-03-23] MEDS: SODIUM CHLORIDE FLUSH 10ML SYR IVF SCH ×2 (08:53→20:21)
[2018-03-23] MEDS: DARBEPOETIN 100 MCG/ML SQ SCH (08:54)
[2018-03-23] MEDS: ERTAPENEM 1 GM in SODIUM CHLORIDE 0.9% 50 ML IV SCH (08:54)
[2018-03-23] MEDS: SENNA 176 MG/5 ML ORAL SOL JT SCH (08:57)
[2018-03-23] MEDS: DEXTROSE 10% 1,000 ML IV SCH (09:01)
[2018-03-23] MEDS ORDERED: FUROSEMIDE 40 MG/4 ML ONE (09:57)
[2018-03-23] MEDS: FUROSEMIDE 100 MG/10 ML IV ONE (10:00)
[2018-03-23] MEDS: CALCIUM CARBONATE 500 MG/5 ML JT SCH (10:37)
[2018-03-23] MEDS: CHOLECALCIFEROL 400 UNITS/ML ORAL SOL JT SCH (10:37)
[2018-03-23 18:16] LABS: CULTURE INDICATED? NO; MICROSCOPIC NOT IND
[2018-03-24] MEDS: ALBUTEROL/IPRATROPIUM 2.5MG/0.5MG, 3 ML INLINE SCH ×6 (02:32→22:14)
[2018-03-24 03:45] LABS: MEAN CORPUSCULAR HEMOGLOBIN 32.8 pg (27.0-34.8); MEAN CORPUSCULAR HGB CONC 34.6 g/dL (32.4-35.8); MEAN CORPUSCULAR VOLUME 94.8 fL (80-100); MEAN PLATELET VOLUME 10.2 fL (7.4-10.4); PLATELET COUNT 104 x10^3/uL (130-400); RED BLOOD COUNT 2.51 x10^6/uL (3.82-5.3); RED CELL DISTRIBUTION WIDTH 16.7 % (9.6-15.2)
[2018-03-24 03:49] LABS: MD YES
[2018-03-24 03:53] LABS: ANION GAP 8 mmol/L (5-15); CALCIUM 7.4 mg/dL (8.5-10.1); CHLORIDE 104 mmol/L (98-107); CREATININE 1.46 mg/dL (0.55-1.02)
[2018-03-24 03:58] LABS: <PLATELET ESTIMATE> DECREASED; <PLT MORPHOLOGY> NORMAL PLT MORPH; ANISOCYTOSIS 1+; BAND#(MANUAL) 0.59 x10^3/uL; BANDS%(MANUAL) 4 % (0-7); LYMPH#(MANUAL) 0.44 x10^3/uL (1-3.4); LYMPHS% (MANUAL) 3 % (22-44); MONOS#(MANUAL) 0.59 x10^3/uL (0.3-2.7); MONOS% (MANUAL) 4 % (2-9); POLYCHROMASIA 1+; SEG#(MANUAL) 13.17 x10^3/uL (1.8-6.8); SEGS% (MANUAL) 89 % (42-75)
[2018-03-24 03:59] LABS: TOXIC GRAN 1+
[2018-03-24] MEDS ORDERED: MAGNESIUM SULFATE PMX 2GM/50ML 50 ML IV ONE (08:00)
[2018-03-24] MEDS: DEXTROSE 10% 1,000 ML IV SCH (08:47)
[2018-03-24] MEDS: ALBUMIN HUMAN 25% 100 ML IV SCH ×2 (08:47→20:29)
[2018-03-24] MEDS: SODIUM CHLORIDE FLUSH 10ML SYR IVF SCH ×2 (09:13→20:29)
[2018-03-24] MEDS: PANTOPRAZOLE 40 MG IV IV SCH (09:13)
[2018-03-24] MEDS: SENNA 176 MG/5 ML ORAL SOL JT SCH (09:13)
[2018-03-24] MEDS: POTASSIUM CHLORIDE 10% 40 MEQ/30 ML UDC PO SCH ×2 (09:13→20:28)
[2018-03-24] MEDS: CALCIUM CARBONATE 500 MG/5 ML JT SCH (09:14)
[2018-03-24] MEDS: DULOXETINE 30 MG CAPSULE.DR PO SCH (09:14)
[2018-03-24] MEDS: CHOLECALCIFEROL 400 UNITS/ML ORAL SOL JT SCH (09:14)
[2018-03-24] MEDS ORDERED: FUROSEMIDE 40 MG/4 ML IV ONE (10:00)
[2018-03-24] MEDS: ERTAPENEM 1 GM in SODIUM CHLORIDE 0.9% 50 ML IV SCH (10:22)
[2018-03-24] MEDS: FENTANYL PF 2,500 MCG in SODIUM CHLORIDE 0.9% 200 ML IV PRN (14:38)
[2018-03-24] MEDS ORDERED: ALBUMIN HUMAN 25% 100 ML IV ONE (22:00)
[2018-03-25] MEDS: ALBUTEROL/IPRATROPIUM 2.5MG/0.5MG, 3 ML INLINE SCH ×6 (02:31→22:45)
[2018-03-25] MEDS: DEXTROSE 10% 1,000 ML IV SCH (03:57)
[2018-03-25 04:19] LABS: BASOPHILS # (AUTO) 0.04 x10^3/uL (0-0.1); BASOPHILS % (AUTO) 0 % (0-1); EOSINOPHILS # (AUTO) 0.52 x10^3/uL (0-0.4); EOSINOPHILS % (AUTO) 4 % (1-7); LYMPHOCYTES # (AUTO) 0.54 x10^3/uL (1-3.4); LYMPHOCYTES % (AUTO) 4 % (22-44); MD NO; MEAN CORPUSCULAR HGB CONC 34.7 g/dL (32.4-35.8); MEAN CORPUSCULAR VOLUME 95.1 fL (80-100); MEAN PLATELET VOLUME 9.8 fL (7.4-10.4); MONOCYTES % (AUTO) 6 % (2-9); NEUTROPHILS # (AUTO) 11.28 x10^3/uL (1.8-6.8); NEUTROPHILS % (AUTO) 86 % (42-75); PLATELET COUNT 161 x10^3/uL (130-400); RED BLOOD COUNT 2.47 x10^6/uL (3.82-5.3); RED CELL DISTRIBUTION WIDTH 16.5 % (9.6-15.2)
[2018-03-25 04:30] LABS: ANION GAP 8 mmol/L (5-15); CALCIUM 7.8 mg/dL (8.5-10.1); CHLORIDE 101 mmol/L (98-107); CREATININE 1.48 mg/dL (0.55-1.02)
[2018-03-25] MEDS ORDERED: FUROSEMIDE 40 MG/4 ML IV ONE (06:30)
[2018-03-25 09:06] LABS: CLOSTRIDIUM DIFFICILE ANTIGEN NEGATIVE; CLOSTRIDIUM DIFFICILE TOXIN NEGATIVE (Negative)
[2018-03-25] MEDS: ALBUMIN HUMAN 25% 100 ML IV SCH ×2 (09:34→20:01)
[2018-03-25] MEDS: DULOXETINE 30 MG CAPSULE.DR PO SCH (09:40)
[2018-03-25] MEDS: POTASSIUM CHLORIDE 10% 40 MEQ/30 ML UDC PO SCH ×2 (09:40→20:01)
[2018-03-25] MEDS: PANTOPRAZOLE 40 MG IV IV SCH (09:40)
[2018-03-25] MEDS: SODIUM CHLORIDE FLUSH 10ML SYR IVF SCH ×2 (09:41→20:01)
[2018-03-25] MEDS: CHOLECALCIFEROL 400 UNITS/ML ORAL SOL JT SCH (09:51)
[2018-03-25] MEDS: CALCIUM CARBONATE 500 MG/5 ML JT SCH (09:51)
[2018-03-25] MEDS: ERTAPENEM 1 GM in SODIUM CHLORIDE 0.9% 50 ML IV SCH (10:59)
[2018-03-25] MEDS ORDERED: LIDOCAINE-MPF 1%, 5ML ONE (14:07)
[2018-03-25] MEDS: FENTANYL PF 2,500 MCG in SODIUM CHLORIDE 0.9% 200 ML IV PRN (23:53)
[2018-03-26] MEDS: ALBUTEROL/IPRATROPIUM 2.5MG/0.5MG, 3 ML INLINE SCH ×6 (02:41→23:09)
[2018-03-26 04:45] LABS: MEAN CORPUSCULAR HEMOGLOBIN 32.8 pg (27.0-34.8); MEAN CORPUSCULAR HGB CONC 34.2 g/dL (32.4-35.8); MEAN CORPUSCULAR VOLUME 95.9 fL (80-100); MEAN PLATELET VOLUME 8.9 fL (7.4-10.4); PLATELET COUNT 220 x10^3/uL (130-400); RED BLOOD COUNT 2.37 x10^6/uL (3.82-5.3); RED CELL DISTRIBUTION WIDTH 16.9 % (9.6-15.2)
[2018-03-26 04:46] LABS: ANION GAP 5 mmol/L (5-15); CALCIUM 8.1 mg/dL (8.5-10.1); CHLORIDE 107 mmol/L (98-107); CREATININE 1.41 mg/dL (0.55-1.02); TRIGLYCERIDES 73 mg/dL (50-200)
[2018-03-26 06:00] LABS: BASOPHILS # (AUTO) 0.01 x10^3/uL (0-0.1); BASOPHILS % (AUTO) 0 % (0-1); EOSINOPHILS # (AUTO) 0.42 x10^3/uL (0-0.4); EOSINOPHILS % (AUTO) 4 % (1-7); LYMPHOCYTES # (AUTO) 0.51 x10^3/uL (1-3.4); LYMPHOCYTES % (AUTO) 5 % (22-44); MD SCAN; MONOCYTES # (AUTO) 0.79 x10^3/uL (0.2-0.8); MONOCYTES % (AUTO) 8 % (2-9); NEUTROPHILS % (AUTO) 82 % (42-75)
[2018-03-26] MEDS: DULOXETINE 30 MG CAPSULE.DR PO SCH (08:46)
[2018-03-26] MEDS: ALBUMIN HUMAN 25% 100 ML IV SCH ×2 (08:46→20:05)
[2018-03-26] MEDS: PANTOPRAZOLE 40 MG IV IV SCH (08:46)
[2018-03-26] MEDS: SODIUM CHLORIDE FLUSH 10ML SYR IVF SCH ×2 (08:46→20:05)
[2018-03-26] MEDS: CALCIUM CARBONATE 500 MG/5 ML JT SCH (10:31)
[2018-03-26] MEDS: CHOLECALCIFEROL 400 UNITS/ML ORAL SOL JT SCH (10:31)
[2018-03-26] MEDS: LINEZOLID PMX 600MG/300ML 300 ML IV SCH ×2 (10:31→21:55)
[2018-03-26 12:21] LABS: TOTAL PROTEIN 5.6 g/dL (6.4-8.2)
[2018-03-26] MEDS: ERTAPENEM 1 GM in SODIUM CHLORIDE 0.9% 50 ML IV SCH (12:32)
[2018-03-27] MEDS: ALBUTEROL/IPRATROPIUM 2.5MG/0.5MG, 3 ML INLINE SCH ×6 (02:16→23:11)
[2018-03-27 04:00] VITALS: BP 106/42
[2018-03-27 04:46] LABS: BASOPHILS # (AUTO) 0.07 x10^3/uL (0-0.1); BASOPHILS % (AUTO) 1 % (0-1); EOSINOPHILS # (AUTO) 0.11 x10^3/uL (0-0.4); EOSINOPHILS % (AUTO) 2 % (1-7); LYMPHOCYTES # (AUTO) 0.42 x10^3/uL (1-3.4); LYMPHOCYTES % (AUTO) 6 % (22-44); MD NO; MEAN CORPUSCULAR HEMOGLOBIN 31.9 pg (27.0-34.8); MEAN CORPUSCULAR HGB CONC 32.8 g/dL (32.4-35.8); MEAN CORPUSCULAR VOLUME 97.3 fL (80-100); MEAN PLATELET VOLUME 9.2 fL (7.4-10.4); MONOCYTES # (AUTO) 0.65 x10^3/uL (0.2-0.8); MONOCYTES % (AUTO) 9 % (2-9); NEUTROPHILS # (AUTO) 5.86 x10^3/uL (1.8-6.8); NEUTROPHILS % (AUTO) 83 % (42-75); PLATELET COUNT 233 x10^3/uL (130-400); RED BLOOD COUNT 2.26 x10^6/uL (3.82-5.3); RED CELL DISTRIBUTION WIDTH 16.5 % (9.6-15.2)
[2018-03-27 04:57] LABS: ANION GAP 7 mmol/L (5-15); CHLORIDE 106 mmol/L (98-107); CREATININE 1.44 mg/dL (0.55-1.02)
[2018-03-27] MEDS: FENTANYL PF 2,500 MCG in SODIUM CHLORIDE 0.9% 200 ML IV PRN (06:02)
[2018-03-27] MEDS: PANTOPRAZOLE 40 MG IV IV SCH (09:16)
[2018-03-27] MEDS: ALBUMIN HUMAN 25% 100 ML IV SCH ×2 (09:16→20:30)
[2018-03-27] MEDS: SODIUM CHLORIDE FLUSH 10ML SYR IVF SCH ×2 (09:17→20:29)
[2018-03-27] MEDS: DULOXETINE 30 MG CAPSULE.DR PO SCH (09:17)
[2018-03-27] MEDS: ERTAPENEM 1 GM in SODIUM CHLORIDE 0.9% 50 ML IV SCH (11:59)
[2018-03-27] MEDS: LINEZOLID PMX 600MG/300ML 300 ML IV SCH ×2 (11:59→22:35)
[2018-03-27] MEDS: CHOLECALCIFEROL 400 UNITS/ML ORAL SOL JT SCH (11:59)
[2018-03-27] MEDS: NOREPINEPHRINE 4 MG in SODIUM CHLORIDE 0.9% 246 ML IV PRN (22:36)
[2018-03-28] MEDS: ALBUTEROL/IPRATROPIUM 2.5MG/0.5MG, 3 ML INLINE SCH ×6 (03:00→23:00)
[2018-03-28 05:46] LABS: ALBUMIN 3.5 g/dL (3.4-5.0); ANION GAP 8 mmol/L (5-15); CALCIUM 8.3 mg/dL (8.5-10.1); CHLORIDE 106 mmol/L (98-107)
[2018-03-28 05:50] LABS: ALANINE AMINOTRANSFERASE 35 U/L (12-78); ALKALINE PHOSPHATASE 62 U/L (45-117); BILIRUBIN,TOTAL 1.7 mg/dL (0.2-1.0); CREATININE 1.41 mg/dL (0.55-1.02); TOTAL PROTEIN 5.8 g/dL (6.4-8.2)
[2018-03-28 06:00] LABS: MEAN CORPUSCULAR HEMOGLOBIN 32.9 pg (27.0-34.8); MEAN CORPUSCULAR HGB CONC 33.8 g/dL (32.4-35.8); MEAN CORPUSCULAR VOLUME 97.2 fL (80-100); MEAN PLATELET VOLUME 8.8 fL (7.4-10.4); PLATELET COUNT 318 x10^3/uL (130-400); RED BLOOD COUNT 2.34 x10^6/uL (3.82-5.3)
[2018-03-28 06:16] LABS: BASOPHILS # (AUTO) 0.02 x10^3/uL (0-0.1); BASOPHILS % (AUTO) 0 % (0-1); EOSINOPHILS # (AUTO) 0.28 x10^3/uL (0-0.4); EOSINOPHILS % (AUTO) 4 % (1-7); LYMPHOCYTES # (AUTO) 0.36 x10^3/uL (1-3.4); LYMPHOCYTES % (AUTO) 5 % (22-44); MD SCAN; MONOCYTES # (AUTO) 0.57 x10^3/uL (0.2-0.8); MONOCYTES % (AUTO) 7 % (2-9); NEUTROPHILS % (AUTO) 84 % (42-75)
[2018-03-28] MEDS: FENTANYL PF 2,500 MCG in SODIUM CHLORIDE 0.9% 200 ML IV PRN (07:46)
[2018-03-28] MEDS: ALBUMIN HUMAN 25% 100 ML IV SCH ×3 (08:30→20:47)
[2018-03-28] MEDS: PANTOPRAZOLE 40 MG IV IV SCH (08:36)
[2018-03-28] MEDS: SODIUM CHLORIDE FLUSH 10ML SYR IVF SCH ×2 (08:37→21:40)
[2018-03-28] MEDS: DULOXETINE 30 MG CAPSULE.DR PO SCH (08:38)
[2018-03-28] MEDS: ERTAPENEM 1 GM in SODIUM CHLORIDE 0.9% 50 ML IV SCH (11:09)
[2018-03-28] MEDS: LINEZOLID PMX 600MG/300ML 300 ML IV SCH ×2 (11:09→23:27)
[2018-03-28] MEDS ORDERED: CALCIUM CARBONATE 500 MG TAB.CHEW ONE (11:29)
[2018-03-28] MEDS ORDERED: CHOLECALCIFEROL 5,000u TAB ONE (11:29)
[2018-03-28] MEDS: CHOLECALCIFEROL 400 UNITS/ML ORAL SOL JT SCH (16:39)
[2018-03-28] MEDS: CALCIUM CARBONATE 500 MG/5 ML JT SCH (16:39)
[2018-03-28] MEDS: D5%-0.45% NACL 1,000 ML IV SCH (19:27)
[2018-03-29] MEDS: ALBUTEROL/IPRATROPIUM 2.5MG/0.5MG, 3 ML INLINE SCH ×6 (03:00→23:00)
[2018-03-29 04:55] LABS: MEAN CORPUSCULAR HEMOGLOBIN 33.3 pg (27.0-34.8); MEAN CORPUSCULAR HGB CONC 34.7 g/dL (32.4-35.8); MEAN PLATELET VOLUME 8.3 fL (7.4-10.4); PLATELET COUNT 406 x10^3/uL (130-400); RED BLOOD COUNT 2.18 x10^6/uL (3.82-5.3); RED CELL DISTRIBUTION WIDTH 16.6 % (9.6-15.2)
[2018-03-29 05:00] LABS: ANION GAP 6 mmol/L (5-15); CALCIUM 8.3 mg/dL (8.5-10.1); CHLORIDE 107 mmol/L (98-107)
[2018-03-29 05:10] LABS: CREATININE 1.41 mg/dL (0.55-1.02); TRIGLYCERIDES 58 mg/dL (50-200)
[2018-03-29 05:48] LABS: BASOPHILS # (AUTO) 0.02 x10^3/uL (0-0.1); BASOPHILS % (AUTO) 0 % (0-1); EOSINOPHILS # (AUTO) 0.24 x10^3/uL (0-0.4); EOSINOPHILS % (AUTO) 4 % (1-7); LYMPHOCYTES # (AUTO) 0.44 x10^3/uL (1-3.4); LYMPHOCYTES % (AUTO) 7 % (22-44); MD SCAN; MONOCYTES # (AUTO) 0.54 x10^3/uL (0.2-0.8); MONOCYTES % (AUTO) 8 % (2-9); NEUTROPHILS # (AUTO) 5.14 x10^3/uL (1.8-6.8); NEUTROPHILS % (AUTO) 81 % (42-75)
[2018-03-29] MEDS: DULOXETINE 30 MG CAPSULE.DR PO SCH (07:59)
[2018-03-29] MEDS: ALBUMIN HUMAN 25% 100 ML IV SCH ×2 (09:08→20:50)
[2018-03-29] MEDS ORDERED: LIDOCAINE-MPF 1%, 5ML ONE (09:36)
[2018-03-29] MEDS: ERTAPENEM 1 GM in SODIUM CHLORIDE 0.9% 50 ML IV SCH (09:50)
[2018-03-29] MEDS: LINEZOLID PMX 600MG/300ML 300 ML IV SCH ×2 (09:50→23:02)
[2018-03-29] MEDS: PANTOPRAZOLE 40 MG IV IV SCH (09:58)
[2018-03-29] MEDS: FENTANYL PF 2,500 MCG in SODIUM CHLORIDE 0.9% 200 ML IV PRN (09:59)
[2018-03-29] MEDS: SODIUM CHLORIDE FLUSH 10ML SYR IVF SCH ×2 (10:00→20:50)
[2018-03-29 14:23] LABS: TOTAL PROTEIN 5.5 g/dL (6.4-8.2)
[2018-03-29] MEDS: CALCIUM CARBONATE 500 MG/5 ML JT SCH (15:20)
[2018-03-29] MEDS: CHOLECALCIFEROL 400 UNITS/ML ORAL SOL JT SCH (15:20)
[2018-03-29] MEDS: D5%-0.45% NACL 1,000 ML IV SCH (15:21)
[2018-03-30] MEDS: ALBUTEROL/IPRATROPIUM 2.5MG/0.5MG, 3 ML INLINE SCH ×6 (03:00→23:31)
[2018-03-30 04:49] LABS: MEAN CORPUSCULAR HEMOGLOBIN 32.8 pg (27.0-34.8); MEAN CORPUSCULAR HGB CONC 34.1 g/dL (32.4-35.8); MEAN CORPUSCULAR VOLUME 96.3 fL (80-100); MEAN PLATELET VOLUME 7.5 fL (7.4-10.4); PLATELET COUNT 473 x10^3/uL (130-400); RED BLOOD COUNT 2.27 x10^6/uL (3.82-5.3); RED CELL DISTRIBUTION WIDTH 15.9 % (9.6-15.2)
[2018-03-30 04:51] LABS: ANION GAP 4 mmol/L (5-15); CALCIUM 8.1 mg/dL (8.5-10.1); CHLORIDE 107 mmol/L (98-107); CREATININE 1.19 mg/dL (0.55-1.02)
[2018-03-30 05:14] LABS: BASOPHILS # (AUTO) 0.03 x10^3/uL (0-0.1); BASOPHILS % (AUTO) 1 % (0-1); EOSINOPHILS % (AUTO) 3 % (1-7); LYMPHOCYTES # (AUTO) 0.47 x10^3/uL (1-3.4); LYMPHOCYTES % (AUTO) 8 % (22-44); MD SCAN; MONOCYTES # (AUTO) 0.42 x10^3/uL (0.2-0.8); MONOCYTES % (AUTO) 7 % (2-9); NEUTROPHILS % (AUTO) 81 % (42-75)
[2018-03-30] MEDS: D5%-0.45% NACL 1,000 ML IV SCH (05:58)
[2018-03-30] MEDS: DULOXETINE 30 MG CAPSULE.DR PO SCH (09:00)
[2018-03-30] MEDS: ALBUMIN HUMAN 25% 100 ML IV SCH ×2 (09:52→21:46)
[2018-03-30] MEDS: SODIUM CHLORIDE FLUSH 10ML SYR IVF SCH ×2 (09:53→21:00)
[2018-03-30] MEDS: PANTOPRAZOLE 40 MG IV IV SCH (09:53)
[2018-03-30] MEDS: ERTAPENEM 1 GM in SODIUM CHLORIDE 0.9% 50 ML IV SCH (10:31)
[2018-03-30] MEDS: DARBEPOETIN 100 MCG/ML SQ SCH (10:31)
[2018-03-30] MEDS: CHOLECALCIFEROL 400 UNITS/ML ORAL SOL JT SCH (10:31)
[2018-03-30] MEDS: LINEZOLID PMX 600MG/300ML 300 ML IV SCH ×2 (10:31→23:48)
[2018-03-30] MEDS: CALCIUM CARBONATE 500 MG/5 ML JT SCH (10:32)
[2018-03-30] MEDS: ENOXAPARIN 40 MG/0.4 ML SQ SCH (21:47)
[2018-03-30] MEDS: FENTANYL PF 2,500 MCG in SODIUM CHLORIDE 0.9% 200 ML IV PRN (21:48)
[2018-03-31] MEDS: ALBUTEROL/IPRATROPIUM 2.5MG/0.5MG, 3 ML INLINE SCH ×6 (03:21→22:55)
[2018-03-31 04:00] VITALS: BP 117/50
[2018-03-31 04:22] LABS: ALANINE AMINOTRANSFERASE 26 U/L (12-78); ALBUMIN 3.9 g/dL (3.4-5.0); ANION GAP 8 mmol/L (5-15); CALCIUM 8.9 mg/dL (8.5-10.1); CHLORIDE 106 mmol/L (98-107); CREATININE 1.23 mg/dL (0.55-1.02)
[2018-03-31 04:24] LABS: ALKALINE PHOSPHATASE 42 U/L (45-117); BILIRUBIN,TOTAL 1.3 mg/dL (0.2-1.0); TOTAL PROTEIN 6.2 g/dL (6.4-8.2)
[2018-03-31 04:28] LABS: MEAN CORPUSCULAR HEMOGLOBIN 32.6 pg (27.0-34.8); MEAN CORPUSCULAR HGB CONC 33.8 g/dL (32.4-35.8); MEAN CORPUSCULAR VOLUME 96.4 fL (80-100); MEAN PLATELET VOLUME 7.8 fL (7.4-10.4); PLATELET COUNT 508 x10^3/uL (130-400)
[2018-03-31 04:50] LABS: BASOPHILS # (AUTO) 0.03 x10^3/uL (0-0.1); BASOPHILS % (AUTO) 1 % (0-1); EOSINOPHILS # (AUTO) 0.07 x10^3/uL (0-0.4); EOSINOPHILS % (AUTO) 1 % (1-7); LYMPHOCYTES # (AUTO) 0.49 x10^3/uL (1-3.4); LYMPHOCYTES % (AUTO) 9 % (22-44); MD SCAN; MONOCYTES # (AUTO) 0.37 x10^3/uL (0.2-0.8); MONOCYTES % (AUTO) 6 % (2-9); NEUTROPHILS # (AUTO) 4.74 x10^3/uL (1.8-6.8); NEUTROPHILS % (AUTO) 83 % (42-75)
[2018-03-31] MEDS: DULOXETINE 30 MG CAPSULE.DR PO SCH (07:27)
[2018-03-31] MEDS: PANTOPRAZOLE 40 MG IV IV SCH (08:11)
[2018-03-31] MEDS: SODIUM CHLORIDE FLUSH 10ML SYR IVF SCH ×2 (08:12→21:31)
[2018-03-31] MEDS: CALCIUM CARBONATE 500 MG/5 ML JT SCH (10:28)
[2018-03-31] MEDS: CHOLECALCIFEROL 400 UNITS/ML ORAL SOL JT SCH (10:28)
[2018-03-31] MEDS: ERTAPENEM 1 GM in SODIUM CHLORIDE 0.9% 50 ML IV SCH (15:11)
[2018-03-31] MEDS: CHOLESTYRAMINE LIGHT 4GM PACKET PO SCH ×2 (15:17→21:00)
[2018-03-31] MEDS: ENOXAPARIN 40 MG/0.4 ML SQ SCH (21:30)
[2018-04-01] MEDS: ALBUTEROL/IPRATROPIUM 2.5MG/0.5MG, 3 ML INLINE SCH ×2 (03:10→07:00)
[2018-04-01 04:29] LABS: MEAN CORPUSCULAR HEMOGLOBIN 32.5 pg (27.0-34.8); MEAN CORPUSCULAR HGB CONC 33.7 g/dL (32.4-35.8); MEAN CORPUSCULAR VOLUME 96.4 fL (80-100); MEAN PLATELET VOLUME 7.4 fL (7.4-10.4); PLATELET COUNT 528 x10^3/uL (130-400); RED BLOOD COUNT 2.33 x10^6/uL (3.82-5.3); RED CELL DISTRIBUTION WIDTH 16.2 % (9.6-15.2)
[2018-04-01 04:36] LABS: ANION GAP 7 mmol/L (5-15); CALCIUM 8.5 mg/dL (8.5-10.1); CHLORIDE 109 mmol/L (98-107); CREATININE 1.16 mg/dL (0.55-1.02); TRIGLYCERIDES 60 mg/dL (50-200)
[2018-04-01 04:47] LABS: BASOPHILS # (AUTO) 0.03 x10^3/uL (0-0.1); BASOPHILS % (AUTO) 1 % (0-1); EOSINOPHILS # (AUTO) 0.08 x10^3/uL (0-0.4); EOSINOPHILS % (AUTO) 2 % (1-7); LYMPHOCYTES # (AUTO) 0.45 x10^3/uL (1-3.4); LYMPHOCYTES % (AUTO) 9 % (22-44); MD SCAN; MONOCYTES # (AUTO) 0.43 x10^3/uL (0.2-0.8); MONOCYTES % (AUTO) 8 % (2-9); NEUTROPHILS % (AUTO) 81 % (42-75)
[2018-04-01] MEDS: PANTOPRAZOLE 40 MG IV IV SCH (09:23)
[2018-04-01] MEDS: DULOXETINE 30 MG CAPSULE.DR PO SCH (09:23)
[2018-04-01] MEDS: SODIUM CHLORIDE FLUSH 10ML SYR IVF SCH ×2 (09:23→21:44)
[2018-04-01] MEDS: CHOLESTYRAMINE LIGHT 4GM PACKET PO SCH ×2 (09:23→21:00)
[2018-04-01] MEDS: CALCIUM CARBONATE 500 MG/5 ML JT SCH (10:05)
[2018-04-01] MEDS: CHOLECALCIFEROL 400 UNITS/ML ORAL SOL JT SCH (10:05)
[2018-04-01] MEDS: ERTAPENEM 1 GM in SODIUM CHLORIDE 0.9% 50 ML IV SCH (10:06)
[2018-04-01] MEDS: ENOXAPARIN 40 MG/0.4 ML SQ SCH (21:45)
[2018-04-02 05:47] LABS: BASOPHILS # (AUTO) 0.04 x10^3/uL (0-0.1); BASOPHILS % (AUTO) 1 % (0-1); EOSINOPHILS # (AUTO) 0.11 x10^3/uL (0-0.4); EOSINOPHILS % (AUTO) 2 % (1-7); LYMPHOCYTES # (AUTO) 0.45 x10^3/uL (1-3.4); LYMPHOCYTES % (AUTO) 9 % (22-44); MD NO; MEAN CORPUSCULAR HEMOGLOBIN 32.7 pg (27.0-34.8); MEAN CORPUSCULAR HGB CONC 34.2 g/dL (32.4-35.8); MEAN CORPUSCULAR VOLUME 95.5 fL (80-100); MEAN PLATELET VOLUME 7.3 fL (7.4-10.4); MONOCYTES # (AUTO) 0.41 x10^3/uL (0.2-0.8); MONOCYTES % (AUTO) 8 % (2-9); NEUTROPHILS # (AUTO) 4.26 x10^3/uL (1.8-6.8); NEUTROPHILS % (AUTO) 81 % (42-75); PLATELET COUNT 517 x10^3/uL (130-400); RED BLOOD COUNT 2.49 x10^6/uL (3.82-5.3); RED CELL DISTRIBUTION WIDTH 15.4 % (9.6-15.2)
[2018-04-02 06:04] LABS: ANION GAP 6 mmol/L (5-15); CALCIUM 8.2 mg/dL (8.5-10.1); CHLORIDE 112 mmol/L (98-107); CREATININE 0.99 mg/dL (0.55-1.02)
[2018-04-02] MEDS: DULOXETINE 30 MG CAPSULE.DR PO SCH (09:00)
[2018-04-02] MEDS: CHOLESTYRAMINE LIGHT 4GM PACKET PO SCH ×2 (09:10→21:11)
[2018-04-02] MEDS: SODIUM CHLORIDE FLUSH 10ML SYR IVF SCH ×2 (09:10→21:11)
[2018-04-02] MEDS: PANTOPRAZOLE 40 MG IV IV SCH (09:11)
[2018-04-02] MEDS ORDERED: CHOLECALCIFEROL 400 UNITS/ML ORAL SOL JT SCH (09:42)
[2018-04-02] MEDS: ERTAPENEM 1 GM in SODIUM CHLORIDE 0.9% 50 ML IV SCH (11:41)
[2018-04-02] MEDS: CALCIUM CARBONATE 500 MG/5 ML JT SCH (11:42)
--- NOTE | 2018-04-02 14:36 | NUR ---
CLIENT CARE MANAGER recommend: CHOPPED/ THINS -Straws ok -Up at 90 for all meal -Small bites/sips -Meds as tolerated. [facility] sheet posted Addendum: 04/02/18 at [address] Amended: Links added.
[2018-04-02] MEDS: ENOXAPARIN 40 MG/0.4 ML SQ SCH (21:11)
[2018-04-02] MEDS: TRAZODONE 50MG TABLET PO PRN (21:11)
[2018-04-03 04:33] LABS: ANION GAP 7 mmol/L (5-15); BASOPHILS # (AUTO) 0.03 x10^3/uL (0-0.1); BASOPHILS % (AUTO) 1 % (0-1); CALCIUM 8.1 mg/dL (8.5-10.1); CHLORIDE 112 mmol/L (98-107); CREATININE 0.87 mg/dL (0.55-1.02); EOSINOPHILS % (AUTO) 2 % (1-7); LYMPHOCYTES # (AUTO) 0.58 x10^3/uL (1-3.4); LYMPHOCYTES % (AUTO) 9 % (22-44); MD NO; MEAN CORPUSCULAR HEMOGLOBIN 32.8 pg (27.0-34.8); MEAN CORPUSCULAR HGB CONC 34.3 g/dL (32.4-35.8); MEAN CORPUSCULAR VOLUME 95.5 fL (80-100); MEAN PLATELET VOLUME 7.1 fL (7.4-10.4); MONOCYTES # (AUTO) 0.52 x10^3/uL (0.2-0.8); MONOCYTES % (AUTO) 8 % (2-9); NEUTROPHILS # (AUTO) 5.49 x10^3/uL (1.8-6.8); NEUTROPHILS % (AUTO) 82 % (42-75); PLATELET COUNT 524 x10^3/uL (130-400); RED BLOOD COUNT 2.51 x10^6/uL (3.82-5.3); RED CELL DISTRIBUTION WIDTH 15.2 % (9.6-15.2)
[2018-04-03] MEDS ORDERED: MAGNESIUM SULFATE PMX 2GM/50ML 50 ML IV ONE (07:30)
[2018-04-03] MEDS: ERTAPENEM 1 GM in SODIUM CHLORIDE 0.9% 50 ML IV SCH (08:43)
[2018-04-03] MEDS: DULOXETINE 30 MG CAPSULE.DR PO SCH (08:43)
[2018-04-03] MEDS: SODIUM CHLORIDE FLUSH 10ML SYR IVF SCH ×2 (08:43→19:50)
[2018-04-03 12:17] VITALS: BP 147/75
[2018-04-03] MEDS: CHOLECALCIFEROL 5,000u TAB PO SCH (14:02)
[2018-04-03] MEDS: TRAZODONE 50MG TABLET PO PRN (19:48)
[2018-04-03] MEDS: ENOXAPARIN 40 MG/0.4 ML SQ SCH (19:48)
[2018-04-03 20:28] VITALS: BP 138/75
[2018-04-04 00:29] VITALS: BP 132/73
[2018-04-04] MEDS: OXYcodone IR 5MG TABLET PO PRN (02:09)
[2018-04-04 06:59] VITALS: BP 155/81
[2018-04-04 07:56] LABS: BASOPHILS # (AUTO) 0.05 x10^3/uL (0-0.1); BASOPHILS % (AUTO) 1 % (0-1); EOSINOPHILS # (AUTO) 0.12 x10^3/uL (0-0.4); EOSINOPHILS % (AUTO) 2 % (1-7); LYMPHOCYTES # (AUTO) 0.67 x10^3/uL (1-3.4); LYMPHOCYTES % (AUTO) 9 % (22-44); MD NO; MEAN CORPUSCULAR HEMOGLOBIN 32.1 pg (27.0-34.8); MEAN CORPUSCULAR HGB CONC 33.2 g/dL (32.4-35.8); MEAN CORPUSCULAR VOLUME 96.5 fL (80-100); MEAN PLATELET VOLUME 6.8 fL (7.4-10.4); MONOCYTES # (AUTO) 0.85 x10^3/uL (0.2-0.8); MONOCYTES % (AUTO) 11 % (2-9); NEUTROPHILS # (AUTO) 6.06 x10^3/uL (1.8-6.8); NEUTROPHILS % (AUTO) 78 % (42-75); PLATELET COUNT 574 x10^3/uL (130-400); RED BLOOD COUNT 2.69 x10^6/uL (3.82-5.3); RED CELL DISTRIBUTION WIDTH 15.7 % (9.6-15.2)
[2018-04-04 08:07] LABS: ANION GAP 8 mmol/L (5-15); CALCIUM 8.6 mg/dL (8.5-10.1); CHLORIDE 108 mmol/L (98-107); CREATININE 1.07 mg/dL (0.55-1.02)
[2018-04-04] MEDS: CHOLECALCIFEROL 5,000u TAB PO SCH (08:48)
[2018-04-04] MEDS: DULOXETINE 30 MG CAPSULE.DR PO SCH (08:48)
[2018-04-04] MEDS: SODIUM CHLORIDE FLUSH 10ML SYR IVF SCH ×2 (08:48→21:00)
[2018-04-04] MEDS: ERTAPENEM 1 GM in SODIUM CHLORIDE 0.9% 50 ML IV SCH (10:09)
[2018-04-04 12:39] VITALS: BP 148/74
[2018-04-04 19:54] VITALS: BP 151/75
[2018-04-04] MEDS: ENOXAPARIN 40 MG/0.4 ML SQ SCH (23:03)
[2018-04-05 00:12] VITALS: BP 148/67
[2018-04-05 05:31] LABS: BASOPHILS # (AUTO) 0.05 x10^3/uL (0-0.1); BASOPHILS % (AUTO) 1 % (0-1); EOSINOPHILS # (AUTO) 0.15 x10^3/uL (0-0.4); EOSINOPHILS % (AUTO) 2 % (1-7); LYMPHOCYTES # (AUTO) 0.73 x10^3/uL (1-3.4); LYMPHOCYTES % (AUTO) 10 % (22-44); MD NO; MEAN CORPUSCULAR HEMOGLOBIN 33.2 pg (27.0-34.8); MEAN CORPUSCULAR HGB CONC 34.3 g/dL (32.4-35.8); MEAN CORPUSCULAR VOLUME 96.8 fL (80-100); MEAN PLATELET VOLUME 7.3 fL (7.4-10.4); MONOCYTES # (AUTO) 0.71 x10^3/uL (0.2-0.8); MONOCYTES % (AUTO) 9 % (2-9); NEUTROPHILS # (AUTO) 5.95 x10^3/uL (1.8-6.8); NEUTROPHILS % (AUTO) 78 % (42-75); PLATELET COUNT 484 x10^3/uL (130-400); RED BLOOD COUNT 2.68 x10^6/uL (3.82-5.3); RED CELL DISTRIBUTION WIDTH 15.6 % (9.6-15.2)
[2018-04-05 05:42] LABS: ANION GAP 7 mmol/L (5-15); CHLORIDE 109 mmol/L (98-107)
[2018-04-05 05:49] LABS: CREATININE 0.87 mg/dL (0.55-1.02)
[2018-04-05 07:08] VITALS: BP 157/76
[2018-04-05] MEDS: CHOLECALCIFEROL 5,000u TAB PO SCH (08:35)
[2018-04-05] MEDS: DULOXETINE 30 MG CAPSULE.DR PO SCH (08:35)
[2018-04-05] MEDS: SODIUM CHLORIDE FLUSH 10ML SYR IVF SCH ×2 (08:35→21:00)
[2018-04-05] MEDS: ERTAPENEM 1 GM in SODIUM CHLORIDE 0.9% 50 ML IV SCH (10:21)
[2018-04-05 13:38] VITALS: BP 130/72
[2018-04-05 19:07] VITALS: BP 161/78
[2018-04-05] MEDS: ENOXAPARIN 40 MG/0.4 ML SQ SCH (21:28)
[2018-04-06 00:44] VITALS: BP 131/74
[2018-04-06 06:05] LABS: ANION GAP 6 mmol/L (5-15); CALCIUM 8.4 mg/dL (8.5-10.1); CHLORIDE 107 mmol/L (98-107); CREATININE 0.91 mg/dL (0.55-1.02); MEAN CORPUSCULAR HEMOGLOBIN 32.5 pg (27.0-34.8); MEAN CORPUSCULAR HGB CONC 33.6 g/dL (32.4-35.8); MEAN CORPUSCULAR VOLUME 96.8 fL (80-100); MEAN PLATELET VOLUME 7.5 fL (7.4-10.4); PLATELET COUNT 478 x10^3/uL (130-400); RED BLOOD COUNT 2.72 x10^6/uL (3.82-5.3); RED CELL DISTRIBUTION WIDTH 15.8 % (9.6-15.2)
[2018-04-06 06:41] LABS: BASOPHILS # (AUTO) 0.05 x10^3/uL (0-0.1); BASOPHILS % (AUTO) 1 % (0-1); EOSINOPHILS # (AUTO) 0.15 x10^3/uL (0-0.4); EOSINOPHILS % (AUTO) 2 % (1-7); LYMPHOCYTES # (AUTO) 0.81 x10^3/uL (1-3.4); LYMPHOCYTES % (AUTO) 10 % (22-44); MD MORPH REVIEW ONLY; MONOCYTES # (AUTO) 0.72 x10^3/uL (0.2-0.8); MONOCYTES % (AUTO) 9 % (2-9); NEUTROPHILS # (AUTO) 6.12 x10^3/uL (1.8-6.8); NEUTROPHILS % (AUTO) 78 % (42-75)
[2018-04-06 06:43] LABS: ANISOCYTOSIS 1+; HYPOCHROMIA 1+; POLYCHROMASIA 1+
[2018-04-06 06:44] LABS: <PLATELET ESTIMATE> INCREASED; <PLT MORPHOLOGY> NORMAL PLT MORPH
[2018-04-06 07:30] VITALS: BP 157/73
[2018-04-06] MEDS: DULOXETINE 30 MG CAPSULE.DR PO SCH (08:29)
[2018-04-06] MEDS: SODIUM CHLORIDE FLUSH 10ML SYR IVF SCH ×2 (08:30→20:51)
[2018-04-06] MEDS: CHOLECALCIFEROL 5,000u TAB PO SCH (08:30)
[2018-04-06] MEDS: ERTAPENEM 1 GM in SODIUM CHLORIDE 0.9% 50 ML IV SCH (09:55)
[2018-04-06 14:00] VITALS: BP 151/73
[2018-04-06 18:20] VITALS: BP 138/72
[2018-04-06] MEDS: ENOXAPARIN 40 MG/0.4 ML SQ SCH (20:50)
[2018-04-07 00:45] VITALS: BP 157/69
[2018-04-07 04:30] LABS: BASOPHILS # (AUTO) 0.03 x10^3/uL (0-0.1); BASOPHILS % (AUTO) 0 % (0-1); EOSINOPHILS # (AUTO) 0.17 x10^3/uL (0-0.4); EOSINOPHILS % (AUTO) 2 % (1-7); LYMPHOCYTES # (AUTO) 0.87 x10^3/uL (1-3.4); LYMPHOCYTES % (AUTO) 11 % (22-44); MD NO; MEAN CORPUSCULAR HEMOGLOBIN 32.8 pg (27.0-34.8); MEAN CORPUSCULAR HGB CONC 34.2 g/dL (32.4-35.8); MEAN CORPUSCULAR VOLUME 95.9 fL (80-100); MEAN PLATELET VOLUME 7.2 fL (7.4-10.4); MONOCYTES # (AUTO) 0.76 x10^3/uL (0.2-0.8); MONOCYTES % (AUTO) 9 % (2-9); NEUTROPHILS # (AUTO) 6.33 x10^3/uL (1.8-6.8); NEUTROPHILS % (AUTO) 77 % (42-75); PLATELET COUNT 399 x10^3/uL (130-400); RED BLOOD COUNT 2.89 x10^6/uL (3.82-5.3)
[2018-04-07 04:42] LABS: ANION GAP 5 mmol/L (5-15); CALCIUM 7.9 mg/dL (8.5-10.1); CHLORIDE 107 mmol/L (98-107); CREATININE 0.95 mg/dL (0.55-1.02)
[2018-04-07 07:19] VITALS: BP 165/84
[2018-04-07] MEDS: DULOXETINE 30 MG CAPSULE.DR PO SCH (08:40)
[2018-04-07] MEDS: MAGNESIUM OXIDE 400 MG TABLET PO SCH (08:40)
[2018-04-07] MEDS: CHOLECALCIFEROL 5,000u TAB PO SCH (08:40)
[2018-04-07] MEDS: SODIUM CHLORIDE FLUSH 10ML SYR IVF SCH ×2 (09:00→20:31)
[2018-04-07] MEDS: ERTAPENEM 1 GM in SODIUM CHLORIDE 0.9% 50 ML IV SCH (10:52)
[2018-04-07 12:01] VITALS: BP 159/75
--- NOTE | 2018-04-07 16:14 | NUR ---
initiated green activity sheet: 1) up in chair 1-2 times a day 2) exercises in chair 1-2 times a day Written and left hanging on wall. Exercises in chair: toe taps for 1 minute marching 10 times each leg leg kicks 10 times each leg incentive spirometer 5 times exercises in bed: ankle pumps for 1 minute knee bends x10 each leg buttock squeezes x10 each leg Addendum: 04/07/18 at 1614 by Lita Watson PT Amended: Links added.
[2018-04-07 18:48] VITALS: BP 146/70
[2018-04-07] MEDS: ENOXAPARIN 40 MG/0.4 ML SQ SCH (20:32)
[2018-04-08 00:38] VITALS: BP 157/75
[2018-04-08 05:15] LABS: BASOPHILS # (AUTO) 0.02 x10^3/uL (0-0.1); BASOPHILS % (AUTO) 0 % (0-1); EOSINOPHILS # (AUTO) 0.11 x10^3/uL (0-0.4); EOSINOPHILS % (AUTO) 2 % (1-7); LYMPHOCYTES # (AUTO) 0.61 x10^3/uL (1-3.4); LYMPHOCYTES % (AUTO) 9 % (22-44); MD NO; MEAN CORPUSCULAR HEMOGLOBIN 32.1 pg (27.0-34.8); MEAN CORPUSCULAR HGB CONC 33.3 g/dL (32.4-35.8); MEAN CORPUSCULAR VOLUME 96.7 fL (80-100); MEAN PLATELET VOLUME 7.5 fL (7.4-10.4); MONOCYTES # (AUTO) 0.64 x10^3/uL (0.2-0.8); MONOCYTES % (AUTO) 9 % (2-9); NEUTROPHILS # (AUTO) 5.59 x10^3/uL (1.8-6.8); NEUTROPHILS % (AUTO) 80 % (42-75); PLATELET COUNT 382 x10^3/uL (130-400); RED CELL DISTRIBUTION WIDTH 17.1 % (9.6-15.2)
[2018-04-08 05:29] LABS: ANION GAP 8 mmol/L (5-15); CALCIUM 8.5 mg/dL (8.5-10.1); CHLORIDE 105 mmol/L (98-107)
[2018-04-08 05:33] LABS: CREATININE 0.93 mg/dL (0.55-1.02)
[2018-04-08 06:33] VITALS: BP 143/83
[2018-04-08] MEDS ORDERED: AMLODIPINE 5 MG TABLET PO SCH (09:00)
[2018-04-08] MEDS: DULOXETINE 30 MG CAPSULE.DR PO SCH (09:56)
[2018-04-08] MEDS: MAGNESIUM OXIDE 400 MG TABLET PO SCH (09:56)
[2018-04-08] MEDS: CHOLECALCIFEROL 5,000u TAB PO SCH (09:56)
[2018-04-08] MEDS: SODIUM CHLORIDE FLUSH 10ML SYR IVF SCH (09:58)
[2018-04-08 12:32] VITALS: BP 133/72
[2018-04-08] MEDS: ERTAPENEM 1 GM in SODIUM CHLORIDE 0.9% 50 ML IV SCH (12:53)
[2018-04-08] MEDS ORDERED: ERTA1VIA IV (16:10)
[2018-04-08] MEDS ORDERED: MAGN400T50 PO (16:10)
[2018-04-08] MEDS ORDERED: CHOL500015 PO (16:10)
[2018-04-08] MEDS ORDERED: AMLO-150 PO (16:10)
[2018-04-08] MEDS ORDERED: DULO30CA2 PO (16:10)
== END 2018-04-08 17:57 | DRG 907 ==
LOC: OUT 07:24 → CCU 14:52 → OUT 15:27 → CCU 15:28 → 4WST 03-16 15:07 → CCU 03-17 07:35 → 3NW 04-03 12:11
PROVIDERS: ADMIT Internal Medicine; ATTEND Internal Medicine
PROC: 0FB03ZX Excision of Liver, Percutaneous Approach, Diagnostic (ICD-10-PCS; 2018-03-15)
PROC: 0T9B70Z Drainage of Bladder with Drainage Device, Via Natural or Artificial Opening (ICD-10-PCS; 2018-03-16)
PROC: 0FC Hepatobiliary System and Pancreas, Extirpation (ICD-10-PCS; 2018-03-17)
PROC: 02HV33Z Insertion of Infusion Device into Superior Vena Cava, Percutaneous Approach (ICD-10-PCS; 2018-03-17)
PROC: 30233N1 Transfusion of Nonautologous Red Blood Cells into Peripheral Vein, Percutaneous Approach (ICD-10-PCS; 2018-03-17)
PROC: 0BH18EZ Insertion of Endotracheal Airway into Trachea, Via Natural or Artificial Opening Endoscopic (ICD-10-PCS; 2018-03-17)
PROC: 03HY32Z Insertion of Monitoring Device into Upper Artery, Percutaneous Approach (ICD-10-PCS; 2018-03-17)
PROC: 02HV33Z Insertion of Infusion Device into Superior Vena Cava, Percutaneous Approach (ICD-10-PCS; 2018-03-18)
PROC: 5A1D70Z Performance of Urinary Filtration, Intermittent, Less than 6 Hours Per Day (ICD-10-PCS; 2018-03-18)
PROC: 5A1D70Z Performance of Urinary Filtration, Intermittent, Less than 6 Hours Per Day (ICD-10-PCS; 2018-03-19)
PROC: 0W9G00Z Drainage of Peritoneal Cavity with Drainage Device, Open Approach (ICD-10-PCS; principal; 2018-03-19 13:00)
PROC: 5A1D70Z Performance of Urinary Filtration, Intermittent, Less than 6 Hours Per Day (ICD-10-PCS; 2018-03-21)
PROC: 5A1955Z Respiratory Ventilation, Greater than 96 Consecutive Hours (ICD-10-PCS; 2018-03-23)
PROC: 0W993ZZ Drainage of Right Pleural Cavity, Percutaneous Approach (ICD-10-PCS; 2018-03-25)
PROC: 0W9930Z Drainage of Right Pleural Cavity with Drainage Device, Percutaneous Approach (ICD-10-PCS; 2018-03-29)
DX: K91.870 Postprocedural hematoma of a digestive system organ or structure following a digestive system procedure (principal); A41.59 Other Gram-negative sepsis; R65.21 Severe sepsis with septic shock; K72.00 Acute and subacute hepatic failure without coma; J96.02 Acute respiratory failure with hypercapnia; N17.0 Acute kidney failure with tubular necrosis; J96.01 Acute respiratory failure with hypoxia; E43 Unspecified severe protein-calorie malnutrition; J85.0 Gangrene and necrosis of lung; K75.0 Abscess of liver; D62 Acute posthemorrhagic anemia; J90 Pleural effusion, not elsewhere classified; J81.1 Chronic pulmonary edema; J98.11 Atelectasis; Z99.11 Dependence on respirator [ventilator] status; K55.9 Vascular disorder of intestine, unspecified; Y84.8 Other medical procedures as the cause of abnormal reaction of the patient, or of later complication, without mention of misadventure at the time of the procedure; E87.6 Hypokalemia; K76.89 Other specified diseases of liver; D69.6 Thrombocytopenia, unspecified; E16.2 Hypoglycemia, unspecified; E83.119 Hemochromatosis, unspecified; F32.9 Major depressive disorder, single episode, unspecified; I10 Essential (primary) hypertension; I34.0 Nonrheumatic mitral (valve) insufficiency; K21.9 Gastro-esophageal reflux disease without esophagitis; K74.60 Unspecified cirrhosis of liver; Z79.2 Long term (current) use of antibiotics; Z68.23 Body mass index [BMI] 23.0-23.9, adult; Z79.890 Hormone replacement therapy; Z82.49 Family history of ischemic heart disease and other diseases of the circulatory system; Z99.2 Dependence on renal dialysis; Z88.0 Allergy status to penicillin
CPT/HCPCS: 32555; 32557; 36415; 36600; 37244; 47000; 71045; 71250; 74018; 74174; 74176; 74177; 74230; 74250; 75726; 76700; 76705; 76937; 76942; 77001; 80048; 80053; 81001; 81003; 81256; 82140; 82247; 82248; 82306; 82310; 82330; 82436; 82533; 82550; 82728; 82803; 82945; 82947; 82962; 83540; 83550; 83605; 83615; 83690; 83735; 83970; 84100; 84132; 84133; 84155; 84157; 84295; 84300; 84478; 84484; 84550; 85014; 85018; 85025; 85045; 85384; 85610; 85730; 86704; 86706; 86803; 86850; 86900; 86923; 87040; 87070; 87077; 87081; 87186; 87205; 87324; 87340; 88112; 88305; 88307; 88313; 88341; 88342; 89050; 93005; 93306; 94002; 94003; 94150; 94640; 99156; 99157; C1894; G0378; J0461; J0610; J0881; J1335; J1650; J1885; J1940; J2020; J2175; J2185; J2250; J2405; J2704; J3010; J3370; J3475; J3480; J3490; J7620; P9047; Q0162; Q9967; C1729; C1751; C1760; C1769; C1887; C9113; J1610; J1642; J2310; J7030; J7040; J7050; J7120; P9016